=== PATIENT | male | born 1955 | race Caucasian/White ===

== ENCOUNTER 2016-08-03 13:13 | Inpatient (IN) | payer MEDICARE, OTHER ==
[~2016-08-03] VITALS: Ht 175.3 cm; Wt 54.5 kg
[2016-08-03] VITALS (19 sets, daily range): BP systolic 89–106; BP diastolic 53–71; PULSE 68–77; RESP 14–21; TEMP 85.7–98.3; O2SAT 94–100
[~2016-08-03 13:13] MED LIST: ALPR2TAB3 PO; DOCU50SY2 PO; MSIR15 PO; OXYB5TAB PO; OXYC1SOL5 PO; PRED-1 PO; PROB1TAB PO; PROT40TA PO; REST30CA PO; SENN-29 PO; VENTAER INH
[2016-08-03] MEDS ORDERED: SODIUM CHLOR 0.9% 1000 ML INJ 1,000 ML IV SCH (13:18)
[2016-08-03 13:20] LABS: MEAN CORPUSCULAR HGB CONC 29.7 % (32.0-36.0)
[2016-08-03] MEDS ORDERED: SODIUM CHLORIDE 0.9% FLUSH 10 ML FLUSH IVF PRN (13:30)
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
[2016-08-03 13:44] LABS: HEMATOCRIT 21.7 % (39.0-51.0); MEAN CELL VOLUME 77.8 FL (80.0-100.0); MEAN CORPUSCULAR HEMOGLOBIN 23.1 PG (27.0-34.0); PLATELET COUNT 157 TH/MM3 (150-450); RED BLOOD COUNT 2.79 MIL/MM3 (4.50-5.90); RED CELL DISTRIBUTION WIDTH 20.1 % (11.6-17.2); WHITE BLOOD COUNT 41.9 TH/MM3 (4.0-11.0)
[2016-08-03 13:53] LABS: HEMO FLAGS AUTO DIFF
[2016-08-03 13:54] LABS: APTT (PATIENT) 35.8 SEC (24.3-30.1); INTERNATIONAL NORMALIZED RATIO 2.4 RATIO; PROTHROMBIN TIME - PATIENT 28.1 SEC (9.8-11.6)
--- NOTE | 2016-08-03 14:09 | RADRPT ---
EXAM DATE/TIME: 08/03/2016 13:46 [facility] COMPARISON: No previous studies available for comparison. INDICATIONS : Syncope, fall, evaluate for fracture MEDICAL HISTORY : non-hodgkins lymphoma SURGICAL HISTORY : cervical fusion ENCOUNTER: Initial ACUITY: 1 day PAIN SCORE: Non-responsive. LOCATION: Bilateral pelvis FINDINGS: A single frontal view of the pelvis demonstrates no evidence of fracture. The bony pelvic ring is in tact. Bony mineralization is normal. The soft tissues are intact. CONCLUSION: No evidence of acute fracture. Cliff Mariscal MD on August 03, 2016 at 14:06 Board Certified Radiologist. This report was verified electronically.
--- NOTE | 2016-08-03 14:10 | RADRPT ---
EXAM DATE/TIME: 08/03/2016 13:41 [facility] COMPARISON: CHEST SINGLE AP, June 20, 2015, 11:44. INDICATIONS : Syncope, short of breath MEDICAL HISTORY : Non-hodgkins lymphoma SURGICAL HISTORY : cervical fusion ENCOUNTER: Initial ACUITY: 1 day PAIN SCORE: Non-responsive. LOCATION: Bilateral chest FINDINGS: A single view of the chest demonstrates the lungs to be symmetrically aerated without evidence of mas s, infiltrate or effusion. The cardiomediastinal contours are unremarkable. Old left-sided rib fract ures. CONCLUSION: No acute disease. Fernando Childress MD on August 03, 2016 at 14:06 Board Certified Radiologist. This report was verified electronically.
[2016-08-03] MEDS ORDERED: diphenhydrAMINE HCL 50 MG/ML VIAL IV PRN (14:15)
[2016-08-03] MEDS ORDERED: CEFEPIME INJ 2,000 MG in SODIUM CHLORIDE 0.9% INJ 100 ML IV ONE (14:15)
[2016-08-03] MEDS ORDERED: SODIUM CHLOR 0.9% 250 ML INJ 250 ML IV ONE (14:15)
[2016-08-03] MEDS ORDERED: AZITHROMYCIN INJ 500 MG in SODIUM CHLOR 0.9% 250 ML INJ 250 ML IV ONE (14:15)
[2016-08-03] MEDS ORDERED: SODIUM CHLOR 0.9% 1000 ML INJ 1,000 ML IV ONE ×2 (14:15→16:00)
[2016-08-03] MEDS ORDERED: ACETAMINOPHEN 325 MG TAB PO PRN (14:15)
[2016-08-03 14:21] LABS: ALKALINE PHOSPHATASE 337 U/L (45-117); ALT (GPT) 267 U/L (12-78); ANION GAP 6 MEQ/L (5-15); AST (GOT) 789 U/L (15-37); BICARBONATE 33.2 MEQ/L (21.0-32.0); BLOOD UREA NITROGEN 52 MG/DL (7-18); CALCIUM-PROTEIN CORRECTED 8.2 MG/DL (8.5-10.1); CHLORIDE 102 MEQ/L (98-107); CREATINE KINASE 741 U/L (39-308); GLOMERULAR FILTRATION RATE 197 ML/MIN (>89); POTASSIUM 4.3 MEQ/L (3.5-5.1); SODIUM (NA) 141 MEQ/L (136-145); TOTAL BILIRUBIN ADULT 1.4 MG/DL (0.2-1.0)
[2016-08-03 14:24] LABS: NEUTROPHIL # MANUAL DIFF 5.4 TH/MM3 (1.8-7.7); PLATELET ESTIMATE SMEAR NORMAL (NORMAL); PLATELET MORPHOLOGY NORMAL (NORMAL); POLYS (SEG NEUTROPHILS) 13 % (16-70); SCAN/DIFF FINAL DIFF MANUAL; WBC DIFF SAMPLE 100
[2016-08-03 14:28] LABS: BLOOD, URINE SMALL (NEG); GLUCOSE,URINE 70 mg/dL (NEG); KETONE, URINE NEG (NEG); MUCUS URINE FEW /lpf (OCC); PH, URINE 6.5 (5.0-8.5); SQUAMOUS EPITHELIAL CELL URINE 1 /hpf (0-5); URINE COLOR YELLOW (YELLW/STRAW)
[2016-08-03 14:28] LABS: SMUDGE CELLS PRESENT PRESENT
[2016-08-03 14:29] LABS: COMMENT (UR) CATH-CULT NOT IND; CULTURE IF INDICATED CATH CULTURE NOT IND; NITRITE,URINE POS (NEG)
[2016-08-03] MEDS ORDERED: ALBU6.7H INH (14:40)
[2016-08-03] MEDS ORDERED: DILA8TAB4 PO (14:40)
[2016-08-03] MEDS ORDERED: LIDO2SOL (14:40)
[2016-08-03] MEDS ORDERED: PANT20TA2 PO (14:40)
[2016-08-03] MEDS ORDERED: PRED20 PO (14:40)
[2016-08-03] MEDS ORDERED: OXYB5TAB10 PO (14:40)
[2016-08-03] MEDS ORDERED: [UNRECOGNIZED DRUG - SUPPLY] (14:40)
[2016-08-03] MEDS ORDERED: AMIT1TAB79 (14:40)
[2016-08-03] MEDS ORDERED: REST30CA PO (14:40)
[2016-08-03] MEDS ORDERED: ZOFR4TAB PO (14:40)
[2016-08-03] MEDS ORDERED: IOHEXOL 350 MG/ML 10 ML VIAL (for RAD DIAG) IV ONE (14:41)
[2016-08-03 14:45] LABS: CKMB 44.9 NG/ML (0.5-3.6)
--- NOTE | 2016-08-03 14:47 | RADRPT ---
EXAM DATE/TIME: 08/03/2016 14:40 [facility] COMPARISON: CT BRAIN W/O CONTRAST, June 15, 2015, 21:59. INDICATIONS : Altered mental status. RADIATION DOSE: 54.09 CTDIvol (mGy) MEDICAL HISTORY : Gastroesophageal reflux disease. Lymphoma. SURGICAL HISTORY : Appendectomy. ENCOUNTER: Initial ACUITY: 1 day PAIN SCALE: Non-responsive LOCATION: Bilateral head TECHNIQUE: Multiple contiguous axial images were obtained of the head. Using automated exposure control and adj ustment of the mA and/or kV according to patient size, radiation dose was kept as low as reasonably a chievable to obtain optimal diagnostic quality images. FINDINGS: CEREBRUM: The ventricles are normal for age. No evidence of midline shift, mass lesion, hemorrhage or acute in farction. No extra-axial fluid collections are seen. POSTERIOR FOSSA: The cerebellum and brainstem are intact. The 4th ventricle is midline. The cerebellopontine angle i s unremarkable. EXTRACRANIAL: The visualized portion of the orbits is intact. SKULL: The calvaria is intact. No evidence of skull fracture. CONCLUSION: Motion otherwise negative.. Darwin Briceño MD FACR on August 03, 2016 at 14:45 Board Certified Radiologist. This report was verified electronically.
--- NOTE | 2016-08-03 15:12 | RADRPT ---
EXAM DATE/TIME: 08/03/2016 14:46 [facility] COMPARISON: No previous studies available for comparison. INDICATIONS : Fever, failure to thrive. IV CONTRAST: 70 cc Omnipaque 350 (iohexol) IV ORAL CONTRAST: No oral contrast ingested. RADIATION DOSE: 4.48 CTDIvol (mGy) MEDICAL HISTORY : Gastroesophageal reflux disease. Lymphoma. SURGICAL HISTORY : Appendectomy. Lumbar discectomy ENCOUNTER: Initial ACUITY: 1 day PAIN SCALE: Non-responsive LOCATION: [place] abdomen TECHNIQUE: Volumetric scanning of the abdomen and pelvis was performed. Using automated exposure control and ad justment of the mA and/or kV according to patient size, radiation dose was kept as low as reasonably achievable to obtain optimal diagnostic quality images. FINDINGS: Patchy airspace disease is seen in lung bases worse on the right. There is trace ascites evident. Spleen is prominent. Pancreas appears unremarkable. Adrenal glands appear normal. Kidneys are smal l and shrunken. Moderate vascular calcifications are noted. Moderate stool is seen throughout the colon. Bladder is distended in spite of Sy. Review of bone windows reveals degenerative changes in the lumbar spine without obvious bony destruct ion. CONCLUSION: 1. Generalized emaciation with patchy airspace disease in both lungs worse on the right. 2. Moderate ascites with a prominent spleen suggesting hepatic disease. 3. Moderate vascular calcifications. 4. Distended bladder in spite of Sy. Darwin Briceño MD FACR on August 03, 2016 at 14:59 Board Certified Radiologist. This report was verified electronically.
[2016-08-03] MEDS ORDERED: MISCELLANEOUS NURSING INFORMATION XX SCH (15:30)
[2016-08-03] MEDS ORDERED: CHLORHEXIDINE GLUCONATE 2 % 1 PACK (2 CLOTHS) TOP PRN (15:30)
[2016-08-03] MEDS ORDERED: GLUCAGON 1 MG/ML VIAL OTHER PRN (15:30)
[2016-08-03] MEDS ORDERED: DEXTROSE 50% IN WATER 50 ML VIAL(D50) IV PUSH PRN (15:30)
[2016-08-03] MEDS ORDERED: Vancomycin Consult Pharmacy 1 EA OTHER SCH (15:45)
[2016-08-03] MEDS: methylPREDNISolone SOD SUCC 125 MG/2 ML VIAL IV PUSH SCH (16:00)
[2016-08-03] MEDS ORDERED: INSULIN NovoLIN REGULAR SUPPLEMENTAL SCALE SQ SCH (16:00)
[2016-08-03] MEDS: DEXT 5%-NACL 0.9% 1000 ML INJ 1,000 ML IV SCH (16:00)
[2016-08-03] MEDS: INSULIN NovoLIN REGULAR SUPPLEMENTAL SCALE SQ SCH ×2 (16:00→22:00)
[2016-08-03 16:35] LABS: AMPHETAMINE, URINE NEG (NEG); BARBITURATES, URINE NEG (NEG); COCAINE, URINE NEG (NEG)
[2016-08-03] MEDS ORDERED: AZITHROMYCIN INJ 500 MG in SODIUM CHLOR 0.9% 250 ML INJ 250 ML IV SCH (17:00)
[2016-08-03] MEDS: SENNOSIDES SYRUP 8.8 MG/5 ML CUP PO SCH (17:00)
[2016-08-03] MEDS ORDERED: CALCIUM GLUCONATE INJ 1 GM in SODIUM CHLORIDE 0.9% INJ 100 ML IV ONE (17:00)
--- NOTE | 2016-08-03 17:26 | RADRPT ---
EXAM DATE/TIME: 08/03/2016 16:13 [facility] COMPARISON: No previous studies available for comparison. EXTERNAL COMPARISON : [facility], CT ABDOMEN & PELVIS W CONTRAST, April 01, 2012 INDICATIONS : Increased lab values. MEDICAL HISTORY : Hernia, hiatal. Gastroesophageal reflux disease. Chronic obstructive pulmonary disease. Nonhodgkins l ymphoma. Stomach ulcer. Chronic back pain. Substance use. Depression. Anxiety. SURGICAL HISTORY : Tonsillectomy. Appendectomy. Adenoidectomy. Cervical fusion x3. Lumbar discectomies, mutliple. Chem otherapy. ENCOUNTER: Initial ACUITY: 1 day PAIN SCORE: 2/10 LOCATION: Bilateral upper quadrant MEASUREMENTS: LIVER: 12.6 cm length COMMON DUCT: 2 mm RIGHT KIDNEY: 9.6 x 5.8 x 4.5 cm SPLEEN: 10.8 cm length FINDINGS: LIVER: A coarse hyperechoic texture is evident throughout the liver. Portal vein is patent. There are no foc al lesions or evidence of biliary duct dilatation. Free fluid is seen along the liver edge. COMMON DUCT: No intraluminal mass or stone visualized. GALLBLADDER: Gallbladder wall is thickened. There is mild pericholecystic fluid and minimal sludge. No large galls tones are seen. PANCREAS: The visualized portions are within normal limits. RIGHT KIDNEY: Increased renal cortical echogenicity and mildly prominent renal pelvis. SPLEEN: No focal lesion. CONCLUSION: Hyperechoic liver with minimal ascites. Thickened gallbladder wall with pericholecystic fluid and minimal sludge. Increase cortical echogenicity of the right kidney without evidence of hydronephrosis. Cliff Mariscal MD on August 03, 2016 at 17:19 Board Certified Radiologist. This report was verified electronically.
[2016-08-03] MEDS ORDERED: VANCOMYCIN INJ 700 MG in SODIUM CHLOR 0.9% 250 ML INJ 250 ML IV ONE (17:30)
[2016-08-03] MEDS: RESP: ALBUTEROL 2.5 MG/IPRATROPIUM 0.5 MG NEB (SCH) INH ×3 (17:44→23:15)
[2016-08-03 17:47] LABS: CREATINE KINASE 685 U/L (39-308)
--- NOTE | 2016-08-03 17:57 | PD.CONS ---
HPI History of Present Illness This is a 61 year old [gentleman] w/ hx non hodgkins lymphoma who per EMR was found on the floor with blood glucose 29, bradycardic. He was also hypothermic with temp 85 per RN, currently 94. He is a hospice pt and had not been seen for a few days, did not answer phone or door. He does not know why he is here. He is asking for a cigarette. He denies abdominal pain, nausea, or vomiting, diarrhea, BRBPR, bleeding. He said he had lymphoma and is done with chemo but cannot contribute further. He says he has never had colonoscopy or endoscopy. He says he has chronic back pain and is asking for pain meds. (Thao Milton) PFSH Past Medical History non hodgkins lymphoma Past Surgical History unk (Thao Milton) Coded Allergies: Effexor (Verified Adverse Reaction, Intermediate, AGITATED, 04/11/15) Nonsteroidal Anti-Inflammatory Agts (Verified Adverse Reaction, Intermediate, NAUSEA, 04/11/15) Medications Current Medications Medications (Trade) Dose Ordered Sig/Angelina Route PRN Reason Start Time Stop Time Status Last Admin Dose Admin Sodium Chloride 2 ml 2 ml UNSCH PRN IVF FLUSH AFTER USING IV ACCESS 08/03/16 13:30 Sodium Chloride (NS 250 ml Inj) 250 ml @ 15 mls/hr ONCE ONCE IV 08/03/16 14:15 08/04/16 06:54 Pantoprazole Sodium (Protonix Inj) 40 mg DAILY IV 08/04/16 09:00 Miscellaneous Information 1 [id number] XX 08/03/16 15:30 Chlorhexidine Gluconate (Chlorhexidine 2% Cloth) 3 pack Taper DAILY@04 TOP 08/04/16 04:00 07/31/17 03:59 Chlorhexidine Gluconate 3 pack 3 pack UNSCH PRN [facility] 08/03/16 15:30 Dextrose/Sodium Chloride (D5W-NS 1000 ml Inj) 1,000 ml @ 100 mls/hr Q10H IV 08/03/16 16:00 08/03/16 16:00 Methylprednisolone Sodium Succinate (SoluMEDROL INJ) 60 mg Q8H IV PUSH 08/03/16 16:00 08/03/16 16:00 Dextrose (D50w (Vial) Inj) 25 ml UNSCH PRN IV PUSH HYPOGLYCEMIA-SEE COMMENTS 08/03/16 15:30 08/03/16 16:12 Glucagon 1 mg 1 mg UNSCH PRN OTHER HYPOGLYCEMIA-SEE COMMENTS 08/03/16 15:30 Calcium Gluconate 1 gm/Sodium Chloride 110 ml @ 110 mls/hr ONCE ONCE IV 08/03/16 17:00 08/03/16 17:59 08/03/16 17:29 Piperacillin Sod/ Tazobactam Sod 100 ml @ 200 mls/hr Q6H IV 08/03/16 16:00 Pharmacy Profile Note (Vancomycin Consult Pharmacy) 0 ml @ 0 mls/hr UNSCH OTHER 08/03/16 15:45 Docusate Sodium (Colace Liq) 100 mg Q12HR PO 08/03/16 21:00 Sennosides (Senna Liq) 8.8 mg DAILY PO 08/03/16 17:00 Insulin Human Regular 1 1 Q2H SQ 08/03/16 16:00 Azithromycin 500 mg/Sodium Chloride 250 ml @ 250 mls/hr Q24H IV 08/04/16 15:00 Vancomycin HCl/ Sodium Chloride (Vancomycin Inj/ NS 250 ml Inj) 257 ml @ 250 mls/hr ONCE ONCE IV 08/03/16 17:30 08/03/16 18:31 Family History unk Social History no ETOH smokes 1.5 ppd (Thao Milton) Review of Systems Constitutional: COMPLAINS OF: Weight loss Respiratory: DENIES: Hemoptysis Cardiovascular: DENIES: Chest pain Gastrointestinal: DENIES: Abdominal pain, Black stools, Bloody stools, Diarrhea , Nausea, Vomiting, Hematemesis Musculoskeletal: COMPLAINS OF: Back pain (says he broke back in 5 places) ( Thao Milton) GI Exam Vitals I&O Vital Signs Date Time Temp Pulse Resp B/P Pulse Ox O2 Delivery O2 Flow Rate FiO2 08/03/16 17:16 93.7 69 15 92/54 95 Room Air 08/03/16 14:54 88.7 08/03/16 14:10 86.5 76 21 106/71 100 Nasal Cannula 2 08/03/16 14:04 100 08/03/16 13:22 85.7 08/03/16 13:16 85.7 21 Imaging Last Impressions Head CT 08/03/161317 Signed Impressions: Service Date/Time: Wednesday, August 03, 2016 14:40 - CONCLUSION: Motion otherwise negative.. Darwin Briceño MD FACR Chest X-Ray 08/03/168 Signed Impressions: Service Date/Time: Wednesday, August 03, 2016 13:41 - CONCLUSION: No acute disease. Fernando Childress MD Pelvis X-Ray 08/03/16 0000 Signed Impressions: Service Date/Time: Wednesday, August 03, 2016 13:46 - CONCLUSION: No evidence of acute fracture. Cliff Mariscal MD Liver Ultrasound 08/03/16 0000 Signed Impressions: Service Date/Time: Wednesday, August 03, 2016 16:13 - CONCLUSION: Hyperechoic liver with minimal ascites. Thickened gallbladder wall with pericholecystic fluid and minimal sludge. Increase cortical echogenicity of the right kidney without evidence of hydronephrosis. Cliff Mariscal MD Abdomen/Pelvis CT 08/03/16 0000 Signed Impressions: Service Date/Time: Wednesday, August 03, 2016 14:46 - CONCLUSION: 1. Generalized emaciation with patchy airspace disease in both lungs worse on the right. 2. Moderate ascites with a prominent spleen suggesting hepatic disease. 3. Moderate vascular calcifications. 4. Distended bladder in spite of Sy. Darwin Briceño MD FACR Laboratory Test 08/03/16 08/03/16 08/03/16 08/03/16 12:20 13:20 14:00 14:10 White Blood Count 41.9 TH/MM3 Red Blood Count 2.79 MIL/MM3 Hemoglobin 6.5 GM/DL Hematocrit 21.7 % Mean Corpuscular Volume 77.8 FL Mean Corpuscular Hemoglobin 23.1 PG Mean Corpuscular Hemoglobin 29.7 % Concent Red Cell Distribution Width 20.1 % Platelet Count 157 TH/MM3 Mean Platelet Volume 7.8 FL Neutrophils (%) (Auto) % Lymphocytes (%) (Auto) % Monocytes (%) (Auto) % Eosinophils (%) (Auto) % Basophils (%) (Auto) % Neutrophils # (Auto) TH/MM3 Lymphocytes # (Auto) TH/MM3 Monocytes # (Auto) TH/MM3 Eosinophils # (Auto) TH/MM3 Basophils # (Auto) TH/MM3 CBC Comment AUTO DIFF Differential Total Cells 100 Counted Neutrophils % (Manual) 13 % Lymphocytes % 84 % Monocytes % 3 % Neutrophils # (Manual) 5.4 TH/MM3 Differential Comment FINAL DIFF MANUAL Smudge Cells PRESENT Platelet Estimate NORMAL Platelet Morphology Comment NORMAL Prothrombin Time 28.1 SEC Prothromb Time International 2.4 RATIO Ratio Activated Partial 35.8 SEC Thromboplast Time Fibrinogen 333 mg/dL Sodium Level 141 MEQ/L Potassium Level 4.3 MEQ/L Chloride Level 102 MEQ/L Carbon Dioxide Level 33.2 MEQ/L Anion Gap 6 MEQ/L Blood Urea Nitrogen 52 MG/DL Creatinine 0.44 MG/DL Estimat Glomerular Filtration 197 ML/MIN Rate Random Glucose 170 MG/DL Calcium Level 6.8 MG/DL Protein Corrected Calcium 8.2 MG/DL Total Bilirubin 1.4 MG/DL Aspartate Amino Transf 789 U/L (AST/SGOT) Alanine Aminotransferase 267 U/L (ALT/SGPT) Alkaline Phosphatase 337 U/L Total Creatine Kinase 741 U/L Creatine Kinase MB 44.9 NG/ML Creatine Kinase MB % 6.1 % Troponin I LESS THAN 0.02 NG/ML Total Protein 4.5 GM/DL Albumin 2.1 GM/DL Thyroid Stimulating Hormone 2.920 uIU/ML 3rd Gen Ethyl Alcohol Level LESS THAN 3 MG/DL Lactic Acid Level 0.9 mmol/L Blood Type O POSITIVE Antibody Screen NEGATIVE Crossmatch Leukocyte-Reduced Red Blood Cells Blood Bank Comment Urine Color YELLOW Urine Turbidity CLEAR Urine pH 6.5 Urine Specific Ware 1.018 Urine Protein NEG mg/dL Urine Glucose (UA) 70 mg/dL Urine Ketones NEG mg/dL Urine Occult Blood SMALL Urine Nitrite POS Urine Bilirubin NEG Urine Urobilinogen LESS THAN 2.0 MG/DL Urine Leukocyte Esterase MOD Urine RBC 17 /hpf Urine WBC 5 /hpf Urine Squamous Epithelial 1 /hpf Cells Urine Mucus FEW /lpf Microscopic Urinalysis Comment CATH-CULT NOT IND Urine Opiates Screen POS Urine Barbiturates Screen NEG Urine Amphetamines Screen NEG Urine Benzodiazepines Screen POS Urine Cocaine Screen NEG Urine Cannabinoids Screen NEG Test 08/03/16 08/03/16 15:28 17:04 Blood Bank Comment Blood Type O POSITIVE Date/Time Procedure Status Source Growth 08/03/16 14:10 Legionella Antigen Received Urine Catheterized Urine Pending 08/03/16 14:10 Streptococcus pneumoniae Antigen (M Received Urine Catheterized Urine Pending 08/03/16 12:40 Aerobic Blood Culture Received Blood Peripheral Pending 08/03/16 12:40 Anaerobic Blood Culture Received Blood Peripheral Pending Physical Examination GENERAL: emaciated HEENT: EOMI; normocephalic; atraumatic; no jaundice. CHEST: diminished CARDIAC: Regular rate and rhythm with no murmur gallop or rubs. ABDOMEN: emaciated;bowel sounds are present in all four quadrants. EXTREMITIES: No clubbing, cyanosis, or edema. SKIN: multiple scabs. ATHLETIC TRAINER: A/O but lethargic. (Thao Milton) Assessment and Plan Plan ASSESSMENT - elevated LFTs - AST 789, ALT 267, ALP 337, TBIL 1.4. hep panel pending. pt denies ETOH. US 08-03-16---> Hyperechoic liver with minimal ascites. Thickened gallbladder wall with pericholecystic fluid and minimal sludge. Increase cortical echogenicity of the right kidney without evidence of hydronephrosis. Abdomen/Pelvis CT 08/03/16---> 1. Generalized emaciation with patchy airspace disease in both lungs worse on the right. 2. Moderate ascites with a prominent spleen suggesting hepatic disease. 3. Moderate vascular calcifications. 4. Distended bladder in spite of Sy. Hep panel pending. HIDA scan. - anemia - HH 6.5, 21.7. Hx lymphoma. guiac neg. pt denies tarry stools, hematochezia, hematemesis. blood transfusion pending PLAN: - monitor HH - monitor LFTs - transfuse as needed - HIDA in am - supportive care - further recommendations after results of above This pt seen by myself and Dr Schroeder and this note is written on her behalf ( Thao Milton) Physician Comments seen, examined agree with above nutritional consult resume diet supportive care (Nicole Schroeder MD) Thao Milton August 03, 2016 17:57 Nicole Schroeder MD August 03, 2016 19:39
[2016-08-03 18:00] LABS: CKMB 41.4 NG/ML (0.5-3.6)
[2016-08-03] MEDS: PIPERACIL-TAZO 4.5 GM PREMIX 100 ML IV SCH ×2 (18:17→22:41)
--- NOTE | 2016-08-03 20:16 | MH ---
cc: KELI LEARY M.D. DATE OF ADMISSION 08/03/2016 DATE OF 1955 HISTORY OF THE PRESENT ILLNESS The patient is a 61-year-old male with past medical history of non-Hodgkin's lymphoma, gastroesophageal reflux disease, chronic back pain, COPD who presented to [facility] ED after being found down on the floor, confused and hypoglycemic with initial blood sugar of 29 according to EMS. He was given D50 and his mental status subsequently improved to a GCS score of 14. In addition the patient was found hypothermic and bradycardic with heart rate in 30s to 50s. He was administered atropine 0.5 mg IV with improvements in his heart rate up to into the 60s and 70s. On arrival to the ER he was slightly confused, however, he was able to answer questions and follows simple commands. The patient denies any headache, neck pain and chest pain. In addition he denies any nausea or vomiting or abdominal pain. The history is somewhat limited as the patient is a poor historian and most of the history was obtained from reviewing the medical records. His laboratory data significant for leukocytosis with WBC of 41.9, lymphocyte predominant. Anemia with hemoglobin of 6.5 with hematocrit 21.7, and coagulopathy with INR of 2.4. In addition he was found to have elevated liver enzymes with a total bilirubin 1.4, AST 789, ALT 267, alk phos 337. Due to altered mental status CT scan of the brain was obtained which showed no acute intracranial findings. Chest x-ray on admission showed no acute disease. His lactic acid level measured at 0.9 and the patient underwent a CT abdomen and pelvis which showed patchy airspace disease, bibasilar, worse on the right. A prominent spleen suggesting hepatic disease, distended bladder and moderate vascular calcification. In the ER he was given 2 liters of crystalloids and 2 units of PRBC has been ordered by the ER. When seen the patient's current blood pressure is 90/51 with a MAP of 68. Saturation of 100% on 2 liters oxygen. He had a temperature of 88.7 core and is currently on warming blanket. PAST MEDICAL HISTORY Significant for: 1. Non-Hodgkin's lymphoma. 2. Gastroesophageal reflux disease. 3. Chronic back pain. 4. COPD. 5. Previous gastric ulcer. PAST SURGICAL HISTORY 1. Previous appendectomy. 2. Previous cervical fusion. 3. Lumbar disectomies. 4. Previous tonsillectomy and adenoidectomy. SOCIAL HISTORY Nondrinker. Active smoker. ALLERGIES EFFEXOR AND NSAIDS. FAMILY HISTORY Noncontributory. MEDICATIONS Reported medications include: 1. Prednisone. 2. Protonix. 3. Dilaudid. 4. Proventil. 5. . 6. Ditropan. 7. Elavil. REVIEW OF SYSTEMS As per HPI. The rest of the review of systems limited as patient is a poor historian. PHYSICAL EXAMINATION GENERAL: A 61-year-old male lying in bed in no acute respiratory distress. VITAL SIGNS: Temperature 88.7 core, pulse of 76, respiratory 21, blood pressure 90/51 with a MAP of 68, saturation 100% on nasal cannula. HEENT: Atraumatic, normocephalic. Pupils equal, round, reactive to light and accommodation. Extraocular muscles intact. Conjunctivae pink. Dry mucous membranes. NECK: Supple. No JVD, adenopathy or thyromegaly. Trachea midline. CARDIOVASCULAR: Regular rate and rhythm. Normal S1-S2. No murmurs, rubs or gallops noted. LUNGS: Pulmonary exam bilateral equal entry. No crackles or wheezing. ABDOMEN: Soft, nontender. No distension. Positive bowel sounds. EXTREMITIES: No cyanosis, clubbing or edema. NEUROLOGIC: No focal sensory deficit. LABORATORY DATA WBC 41.9, hemoglobin 6.5, hematocrit 21, platelet count of 157. Sodium 141, potassium 4.3, chloride 102, CO2 33, BUN 52, creatinine 0.44, glucose 170, lactic acid 0.9. Corrected calcium 8.2. Total bilirubin 1.4, AST 789, ALT 267, alk phos 337. Total CK 741, CKMB percentage 6.1 with troponin less than 0.02. Albumin 2.1. TSH 2.92. Urinalysis positive for leukocyte esterase, nitrite, 5 wbc's. IMAGING Radiographic studies, CT scan of the brain showed no acute intracranial abnormality. CT abdomen, pelvis showed patchy airspace disease in both lung bases, worse on the right. Distended bladder. IMPRESSION 1. Respiratory insufficiency. 2. Status post hypoglycemic episode. 3. Leukocytosis. 4. Urinary tract infection. 5. Anemia. 6. Coagulopathy. 7. Elevated liver enzymes. 8. COPD. 9. History of non-Hodgkin's lymphoma. 10. Gastroesophageal reflux disease RECOMMENDATIONS 1. Monitor neuro status closely and avoid any sedatives. CT scan of the brain in the ER negative for acute disease. Will check ammonia level, alcohol level and urine drug screen. 2. Continue with oxygen to maintain sats above 92%. 3. Bronchodilators in the form of DuoNeb q.4h. Plus q.2h as needed for shortness of breath. 4. Solu-Medrol 60 mg IV q.8h. 5. Monitor heart rate and blood pressure closely and maintain MAP greater than 65 mmHg. A lactic acid level measured at 0.9. 6. Monitor cardiac enzymes with troponins. He was given 2 liters of crystalloid in the ED. Will give an additional one liter bolus of normal saline followed by maintenance fluids D5 NS at 100 ml an hour. 7. Monitor renal function Is and Os and electrolyte replacement per protocol. 8. Keep n.p.o. for now and we will place on Protonix 40 mg IV daily. 9. The patient is for transfusion 2 units of PRBCs. In addition will transfuse 2 units of fresh frozen plasma for coagulopathy. Check H&H and PT/INR post transfusion. Will consult GI service for possible need of endoscopy. 10. Monitor LFTs and will check hepatitis profile. 11. Monitor CBC and coags rule out DIC. Check fibrinogen level. 12. Continue with broad-spectrum antibiotics. Will continue place on vancomycin, Zosyn and azithromycin. Monitor for signs of infections which include fever and WBC. Of note the patient received cefepime and azithromycin in the ER. Follow up on blood cultures. In addition will check a sputum culture with gram stain, strep pneumonia and Legionella urinary antigen. 13. Place on sliding scale insulin with Accu-Cheks q. 2-hour. The patient status post hypoglycemic episode. Will place on D5 NS at 100 ml an hour. TSH level measured at 2.92. 14. Keep n.p.o. for now until mental status improves and continue with IV fluids as stated above. 15. GI prophylaxis with Protonix 40 mg daily and DVT prophylaxis with SCDs. The patient is anticoagulated on arrival with INR 2.4. No need for any further anticoagulation. Critical care time 35 minutes excluding procedures. MD FLORENCIA Lopez /3:59 PM /7:16 PM
[2016-08-03] MEDS: DOCUSATE SODIUM 100 MG/10 ML UDC PO SCH (21:00)
[2016-08-03] MEDS: HYDROmorphone HCL PF 1 MG/ML VIAL IV PRN (22:37)
[2016-08-04] VITALS (14 sets, daily range): BP systolic 101–143; BP diastolic 58–65; PULSE 62–85; RESP 10–18; TEMP 97.5–98.6; O2SAT 95–100
[2016-08-04] MEDS: methylPREDNISolone SOD SUCC 125 MG/2 ML VIAL IV PUSH SCH ×4 (00:38→21:20)
[2016-08-04] MEDS: DEXT 5%-NACL 0.9% 1000 ML INJ 1,000 ML IV SCH ×3 (00:39→21:20)
[2016-08-04 01:15] LABS: CREATINE KINASE 845 U/L (39-308)
[2016-08-04 01:27] LABS: CKMB 37.1 NG/ML (0.5-3.6)
[2016-08-04] MEDS: ALPRAZolam 1 MG TAB PO PRN ×4 (01:55→23:57)
[2016-08-04] MEDS: HYDROmorphone HCL 4 MG TAB PO PRN ×4 (01:56→23:57)
[2016-08-04] MEDS: INSULIN NovoLIN REGULAR SUPPLEMENTAL SCALE SQ SCH ×6 (02:00→20:00)
[2016-08-04] MEDS: PIPERACIL-TAZO 4.5 GM PREMIX 100 ML IV SCH ×4 (02:03→21:20)
[2016-08-04] MEDS: CHLORHEXIDINE GLUCONATE 2 % 1 PACK (2 CLOTHS) TOP SCH (04:00)
[2016-08-04 04:02] LABS: INTERNATIONAL NORMALIZED RATIO 1.5 RATIO
[2016-08-04] MEDS: RESP: ALBUTEROL 2.5 MG/IPRATROPIUM 0.5 MG NEB (SCH) INH ×5 (04:04→23:54)
[2016-08-04 04:21] LABS: BICARBONATE 28.1 MEQ/L (21.0-32.0); POTASSIUM 4.3 MEQ/L (3.5-5.1)
[2016-08-04 04:33] LABS: CALCIUM-PROTEIN CORRECTED 7.3 MG/DL (8.5-10.1)
[2016-08-04 04:39] LABS: HEMATOCRIT 30.4 % (39.0-51.0); MEAN CELL VOLUME 81.6 FL (80.0-100.0); MEAN CORPUSCULAR HEMOGLOBIN 25.1 PG (27.0-34.0); MEAN CORPUSCULAR HGB CONC 30.7 % (32.0-36.0); PLATELET COUNT 115 TH/MM3 (150-450); RED BLOOD COUNT 3.72 MIL/MM3 (4.50-5.90); WHITE BLOOD COUNT 26.4 TH/MM3 (4.0-11.0)
[2016-08-04 04:42] LABS: HEMO FLAGS AUTO DIFF
[2016-08-04] MEDS: HYDROmorphone HCL PF 1 MG/ML VIAL IV PRN (05:08)
[2016-08-04 06:55] LABS: NEUTROPHIL # MANUAL DIFF 6.9 TH/MM3 (1.8-7.7); POLYS (SEG NEUTROPHILS) 26 % (16-70); WBC DIFF SAMPLE 100
[2016-08-04 06:58] LABS: PLATELET ESTIMATE SMEAR LOW (NORMAL); PLATELET MORPHOLOGY NORMAL (NORMAL); SCAN/DIFF FINAL DIFF MANUAL
[2016-08-04] MEDS: DOCUSATE SODIUM 100 MG/10 ML UDC PO SCH ×2 (07:54→21:00)
[2016-08-04] MEDS: SENNOSIDES SYRUP 8.8 MG/5 ML CUP PO SCH (07:54)
[2016-08-04] MEDS: PANTOPRAZOLE SODIUM 40 MG VIAL IV SCH (07:55)
--- NOTE | 2016-08-04 08:17 | HHI.CCPN ---
Subjective Remarks/Hospital Course The patient is a 61-year-old male with past medical history of non-Hodgkin's lymphoma, gastroesophageal reflux disease, chronic back pain, COPD who presented to [facility] ED after being found down on the floor, confused and hypoglycemic with initial blood sugar of 29 according to EMS. He was given D50 and his mental status subsequently improved to a GCS score of 14. In addition the patient was found hypothermic and bradycardic with heart rate in 30s to 50s. He was administered atropine 0.5 mg IV with improvements in his heart rate up to into the 60s and 70s. On arrival to the ER he was slightly confused, however, he was able to answer questions and follows simple commands. The patient denies any headache, neck pain and chest pain. In addition he denies any nausea or vomiting or abdominal pain. The history is somewhat limited as the patient is a poor historian and most of the history was obtained from reviewing the medical records. His laboratory data significant for leukocytosis with WBC of 41.9, lymphocyte predominant. Anemia with hemoglobin of 6.5 with hematocrit 21.7, and coagulopathy with INR of 2.4. In addition he was found to have elevated liver enzymes with a total bilirubin 1.4, AST 789, ALT 267, alk phos 337. Due to altered mental status CT scan of the brain was obtained which showed no acute intracranial findings. Chest x-ray on admission showed no acute disease. His lactic acid level measured at 0.9 and the patient underwent a CT abdomen and pelvis which showed patchy airspace disease, bibasilar, worse on the right. A prominent spleen suggesting hepatic disease, distended bladder and moderate vascular calcification. In the ER he was given 2 liters of crystalloids and 2 units of PRBC has been ordered by the ER. When seen the patient's current blood pressure is 90/51 with a MAP of 68. Saturation of 100% on 2 liters oxygen. He had a temperature of 88.7 core and is currently on warming blanket. 08/04 Patient is more awake and alert lying in bed in NAD. For HID scan today per GI. Objective Vital Signs Date Time Temp Pulse Resp B/P Pulse Ox O2 Delivery O2 Flow Rate FiO2 08/04/16 06:00 69 08/04/16 04:00 97.9 17 107/59 08/03/16 23:15 100 Nasal Cannula 2.00 Intake and Output 08/03/16 08/03/16 08/03/16 07:59 15:59 23:59 Intake Total 1531 ml Output Total 2100 ml Balance -569 ml Result Diagram: 08/04/16 0337 08/04/16 0337 Other Results Laboratory Tests Test 08/03/16 08/03/16 08/03/16 08/03/16 12:20 13:20 14:00 14:10 White Blood Count 41.9 TH/MM3 Red Blood Count 2.79 MIL/MM3 Hemoglobin 6.5 GM/DL Hematocrit 21.7 % Mean Corpuscular Volume 77.8 FL Mean Corpuscular Hemoglobin 23.1 PG Mean Corpuscular Hemoglobin 29.7 % Concent Red Cell Distribution Width 20.1 % Platelet Count 157 TH/MM3 Mean Platelet Volume 7.8 FL Neutrophils (%) (Auto) % Lymphocytes (%) (Auto) % Monocytes (%) (Auto) % Eosinophils (%) (Auto) % Basophils (%) (Auto) % Neutrophils # (Auto) TH/MM3 Lymphocytes # (Auto) TH/MM3 Monocytes # (Auto) TH/MM3 Eosinophils # (Auto) TH/MM3 Basophils # (Auto) TH/MM3 CBC Comment AUTO DIFF Differential Total Cells 100 Counted Neutrophils % (Manual) 13 % Lymphocytes % 84 % Monocytes % 3 % Neutrophils # (Manual) 5.4 TH/MM3 Differential Comment FINAL DIFF MANUAL Smudge Cells PRESENT Platelet Estimate NORMAL Platelet Morphology Comment NORMAL Prothrombin Time 28.1 SEC Prothromb Time International 2.4 RATIO Ratio Activated Partial 35.8 SEC Thromboplast Time Fibrinogen 333 mg/dL Sodium Level 141 MEQ/L Potassium Level 4.3 MEQ/L Chloride Level 102 MEQ/L Carbon Dioxide Level 33.2 MEQ/L Anion Gap 6 MEQ/L Blood Urea Nitrogen 52 MG/DL Creatinine 0.44 MG/DL Estimat Glomerular Filtration 197 ML/MIN Rate Random Glucose 170 MG/DL Calcium Level 6.8 MG/DL Protein Corrected Calcium 8.2 MG/DL Total Bilirubin 1.4 MG/DL Aspartate Amino Transf 789 U/L (AST/SGOT) Alanine Aminotransferase 267 U/L (ALT/SGPT) Alkaline Phosphatase 337 U/L Total Creatine Kinase 741 U/L Creatine Kinase MB 44.9 NG/ML Creatine Kinase MB % 6.1 % Troponin I LESS THAN 0.02 NG/ML Total Protein 4.5 GM/DL Albumin 2.1 GM/DL Thyroid Stimulating Hormone 2.920 uIU/ML 3rd Gen Ethyl Alcohol Level LESS THAN 3 MG/DL Lactic Acid Level 0.9 mmol/L Blood Type O POSITIVE Antibody Screen NEGATIVE Crossmatch Leukocyte-Reduced Red Blood Cells Blood Bank Comment Urine Color YELLOW Urine Turbidity CLEAR Urine pH 6.5 Urine Specific [place] 1.018 Urine Protein NEG mg/dL Urine Glucose (UA) 70 mg/dL Urine Ketones NEG mg/dL Urine Occult Blood SMALL Urine Nitrite POS Urine Bilirubin NEG Urine Urobilinogen LESS THAN 2.0 MG/DL Urine Leukocyte Esterase MOD Urine RBC 17 /hpf Urine WBC 5 /hpf Urine Squamous Epithelial 1 /hpf Cells Urine Mucus FEW /lpf Microscopic Urinalysis Comment CATH-CULT NOT IND Urine Opiates Screen POS Urine Barbiturates Screen NEG Urine Amphetamines Screen NEG Urine Benzodiazepines Screen POS Urine Cocaine Screen NEG Urine Cannabinoids Screen NEG Test 08/03/16 08/03/16 08/03/16 08/04/16 15:28 17:04 20:45 00:27 Blood Bank Comment Ammonia LESS THAN 10 MCMOL/L Total Creatine Kinase 685 U/L 845 U/L Creatine Kinase MB 41.4 NG/ML 37.1 NG/ML Creatine Kinase MB % 6.0 % 4.4 % Troponin I LESS THAN 0.02 LESS THAN 0.02 NG/ML NG/ML Blood Type O POSITIVE Nasal Screen MRSA (PCR) MRSA NOT DETECTED Test 08/04/16 03:37 White Blood Count 26.4 TH/MM3 Red Blood Count 3.72 MIL/MM3 Hemoglobin 9.3 GM/DL Hematocrit 30.4 % Mean Corpuscular Volume 81.6 FL Mean Corpuscular Hemoglobin 25.1 PG Mean Corpuscular Hemoglobin 30.7 % Concent Red Cell Distribution Width 19.0 % Platelet Count 115 TH/MM3 Mean Platelet Volume 8.1 FL Neutrophils (%) (Auto) % Lymphocytes (%) (Auto) % Monocytes (%) (Auto) % Eosinophils (%) (Auto) % Basophils (%) (Auto) % Neutrophils # (Auto) TH/MM3 Lymphocytes # (Auto) TH/MM3 Monocytes # (Auto) TH/MM3 Eosinophils # (Auto) TH/MM3 Basophils # (Auto) TH/MM3 CBC Comment AUTO DIFF Differential Total Cells 100 Counted Neutrophils % (Manual) 26 % Lymphocytes % 74 % Neutrophils # (Manual) 6.9 TH/MM3 Differential Comment FINAL DIFF MANUAL Atypical Lymphocytes % Platelet Estimate LOW Platelet Morphology Comment NORMAL Prothrombin Time 17.0 SEC Prothromb Time International 1.5 RATIO Ratio Sodium Level 143 MEQ/L Potassium Level 4.3 MEQ/L Chloride Level 106 MEQ/L Carbon Dioxide Level 28.1 MEQ/L Anion Gap 9 MEQ/L Blood Urea Nitrogen 41 MG/DL Creatinine 0.61 MG/DL Estimat Glomerular Filtration 135 ML/MIN Rate Random Glucose 134 MG/DL Calcium Level 6.4 MG/DL Protein Corrected Calcium 7.3 MG/DL Total Bilirubin 1.0 MG/DL Aspartate Amino Transf 505 U/L (AST/SGOT) Alanine Aminotransferase 245 U/L (ALT/SGPT) Alkaline Phosphatase 311 U/L Total Protein 5.2 GM/DL Albumin 2.4 GM/DL Imaging Last Impressions Head CT 08/03/[id number] Signed Impressions: Service Date/Time: Wednesday, August 03, 2016 14:40 - CONCLUSION: Motion otherwise negative.. Darwin Briceño MD FACR Chest X-Ray [id number]/03/[id number] Signed Impressions: Service Date/Time: Wednesday, August 03, 2016 13:41 - CONCLUSION: No acute disease. Fernando Childress MD Pelvis X-Ray 08/03/16 Signed Impressions: Service Date/Time: Wednesday, August 03, 2016 13:46 - CONCLUSION: No evidence of acute fracture. Cliff Mariscal MD Liver Ultrasound 08/03/16 0000 Signed Impressions: Service Date/Time: Wednesday, August 03, 2016 16:13 - CONCLUSION: Hyperechoic liver with minimal ascites. Thickened gallbladder wall with pericholecystic fluid and minimal sludge. Increase cortical echogenicity of the right kidney without evidence of hydronephrosis. Cliff Mariscal MD Abdomen/Pelvis CT 08/03/16 0000 Signed Impressions: Service Date/Time: Wednesday, August 03, 2016 14:46 - CONCLUSION: 1. Generalized emaciation with patchy airspace disease in both lungs worse on the right. 2. Moderate ascites with a prominent spleen suggesting hepatic disease. 3. Moderate vascular calcifications. 4. Distended bladder in spite of Sy. Darwin Briceño MD FACR Objective Remarks GENERAL: Patient is lying in bed in NAD SKIN: Warm and dry. HEAD: Normocephalic. EYES: No scleral icterus. No injection or drainage. NECK: Supple, trachea midline. No JVD or lymphadenopathy. CARDIOVASCULAR: Regular rate and rhythm without murmurs, gallops, or rubs. RESPIRATORY: Breath sounds equal bilaterally. No accessory muscle use. GASTROINTESTINAL: Abdomen soft, non-tender, nondistended. MUSCULOSKELETAL: No cyanosis, or edema. BACK: Nontender without obvious deformity. No CVA tenderness. Neuro: Awake and alert A/P Assessment and Plan 1. Respiratory insufficiency. 2. Status post hypoglycemic episode. 3. Leukocytosis. 4. Urinary tract infection. 5. Anemia. 6. Coagulopathy. 7. Elevated liver enzymes. 8. COPD. 9. History of non-Hodgkin's lymphoma. 10. GERD 11. Chronic back pain. Plan Neuro: Monitor neuro status and avoid any sedatives. CT brain negative for acute disease. UDS:+ Opiates, Benzo, Ammonia level < 10 On Xanax 1mg Q4 PRN anxiety, Dilaudid PRN for pain. Pulm: Continue with oxygen to maintain sats > 92%. Bronchodilators . Solu-Medrol 60 mg IV q.8h. CV: Monitor HR and BP and maintain MAP > 65 mmHg. Lactic acid level: 0.9. Received 3L NS on arrival. On D5 NS at 100 ml an hour. :Monitor renal function Is and Os and electrolyte replacement per protocol. GI: On Protonix 40 mg IV daily. Monitor LFT's, GI is following. For HIDA scan today. Follow up on Hepatitis profile. US Liver: Hyperechoic liver with minimal ascites. Thickened gallbladder wall with pericholecystic fluid and minimal sludge. Increase cortical echogenicity of the right kidney without evidence of hydronephrosis. Heme: s/p transfusion 2 units of PRBCs, 2u FFP yesterday. Hgb 9.3 today from 6.5 on arrival and INR: 1.5 today from 2.4 Fibrinogen level: 333 ID: continue with abx (vancomycin, Zosyn and azithromycin). Monitor for signs of infections (fever and WBC). WBC trending down. Received cefepime and azithromycin in the ER. Strep pneumonia and Legionella urinary Ag negative. Follow up on cultures. Endo: SSI with Accu-Cheks q. 2-hour. On D5 NS at 100 ml an hour. TSH level measured at 2.92. GI prophylaxis with Protonix 40 mg daily and DVT prophylaxis with SCDs. INR 1.5 today from 2.4 on arrival Not on chemical AC prophylaxis due to anemia requiring blood transfusion in addition patient was coagulopathic on arrival. Level 3 Diane Hernandez MD August 04, 2016 08:17
[2016-08-04] MEDS ORDERED: CALCIUM GLUCONATE INJ 1 GM in SODIUM CHLORIDE 0.9% INJ 100 ML IV ONE (09:00)
--- NOTE | 2016-08-04 12:42 | RADRPT ---
EXAM DATE/TIME: 08/04/2016 09:17 [place] COMPARISON: CT ABDOMEN & PELVIS W CONTRAST, August 03, 2016, 14:46. INDICATIONS : Ascites with abdominal pain and elevated liver enzymes. DOSE: 4.1 mCi Tc99m Mebrofenin IV MEDICAL HISTORY : Chronic obstructive pulmonary disease. Gastroesophageal reflux disease. SURGICAL HISTORY : Appendectomy. Tonsillectomy. Fusion, cervical. ENCOUNTER: Initial ACUITY: 1 day PAIN SCALE: 4/10 LOCATION: Right upper quadrant TECHNIQUE: Following the intravenous administration of radiotracer, dynamic sequential images were performed wit h continuous acquisition. FINDINGS: HEPATIC KINETICS: There is prompt uptake of radiotracer in the liver. No focal defects are seen. There is normal rate of washout from the hepatic parenchyma. BILIARY CLEARANCE: Activity is first seen in the extrahepatic biliary system at 5 minutes. There is normal excretion in to the small bowel. GALLBLADDER: Activity is first seen in the gallbladder at 5 minutes. Common bile duct kinetics are normal and the re is no evidence of biliary obstruction. Gallbladder ejection fraction is less than 25%. BILIARY ENTRIC REFLUX: Small amount observed. CONCLUSION: Gallbladder ejection fraction less than 25% indicating possible chronic cholecystitis in the proper c linical setting. Chase Daniels MD on August 04, 2016 at 12:36 Board Certified Radiologist. This report was verified electronically.
[2016-08-04] MEDS: VANCOMYCIN INJ 750 MG in SODIUM CHLOR 0.9% 250 ML INJ 250 ML IV SCH ×2 (13:40→23:57)
[2016-08-04] MEDS: RESP: ALBUTEROL 2.5 MG/IPRATROPIUM 0.5 MG NEB (PRN) INH (14:11)
--- NOTE | 2016-08-04 15:50 | EKG ---
Date Performed: 08/03/2016 Time Performed: 13:25:47 PTAGE: 61 years EKG: SUPRAVENTRICULAR RHYTHM MODERATE ST DEPRESSION PROLONGED QT INTERVAL Compared to prior trac ing no significant change ABNORMAL ECG PREVIOUS TRACING : 06/15/2015 21.54 DOCTOR: Katya Lopez Interpretating Date/Time 08/04/2016 15:46:53
[2016-08-04] MEDS: COLLAGENASE OINT 30 GM TUBE TOPICAL SCH (17:15)
[2016-08-04] MEDS: AZITHROMYCIN INJ 500 MG in SODIUM CHLOR 0.9% 250 ML INJ 250 ML IV SCH (17:16)
[2016-08-05] VITALS (15 sets, daily range): BP systolic 137–180; BP diastolic 60–81; PULSE 70–97; RESP 10–24; TEMP 97.4–98.9; O2SAT 82–100
[2016-08-05] MEDS: RESP: ALBUTEROL 2.5 MG/IPRATROPIUM 0.5 MG NEB (SCH) INH ×5 (03:34→21:12)
[2016-08-05] MEDS: INSULIN NovoLIN REGULAR SUPPLEMENTAL SCALE SQ SCH ×6 (04:00→21:00)
[2016-08-05] MEDS: CHLORHEXIDINE GLUCONATE 2 % 1 PACK (2 CLOTHS) TOP SCH (04:00)
[2016-08-05] MEDS: PIPERACIL-TAZO 4.5 GM PREMIX 100 ML IV SCH ×4 (04:00→21:26)
[2016-08-05 04:16] LABS: HEMATOCRIT 25.1 % (39.0-51.0); MEAN CELL VOLUME 78.6 FL (80.0-100.0); MEAN CORPUSCULAR HEMOGLOBIN 25.8 PG (27.0-34.0); MEAN CORPUSCULAR HGB CONC 32.8 % (32.0-36.0); PLATELET COUNT 82 TH/MM3 (150-450); RED CELL DISTRIBUTION WIDTH 19.4 % (11.6-17.2); WHITE BLOOD COUNT 20.7 TH/MM3 (4.0-11.0)
[2016-08-05 04:35] LABS: HEMO FLAGS AUTO DIFF
[2016-08-05 04:45] LABS: BICARBONATE 34.6 MEQ/L (21.0-32.0); MAGNESIUM 1.5 MG/DL (1.5-2.5); TOTAL BILIRUBIN ADULT 0.6 MG/DL (0.2-1.0)
[2016-08-05 05:08] LABS: CALCIUM-PROTEIN CORRECTED 7.3 MG/DL (8.5-10.1); POTASSIUM 2.2 MEQ/L (3.5-5.1)
[2016-08-05 05:26] LABS: CKMB 8.3 NG/ML (0.5-3.6)
[2016-08-05] MEDS ORDERED: POTASSIUM CHLORIDE 20 MEQ CONTROLLED RELEASE TAB PO ONE ×2 (05:45→17:00)
[2016-08-05] MEDS ORDERED: SODIUM PHOSPHATE INJ 30 MMOL in SODIUM CHLOR 0.9% 250 ML INJ 250 ML IV ONE (05:45)
[2016-08-05] MEDS: RESP: ALBUTEROL 2.5 MG/IPRATROPIUM 0.5 MG NEB (PRN) INH (05:47)
[2016-08-05] MEDS: HYDROmorphone HCL 4 MG TAB PO PRN ×4 (05:58→20:03)
[2016-08-05] MEDS: ALPRAZolam 1 MG TAB PO PRN ×2 (05:58→20:03)
[2016-08-05] MEDS: POTASSIUM CHLOR 20 MEQ PREMIX 100 ML IV SCH ×3 (06:27→11:20)
[2016-08-05] MEDS: DEXT 5%-NACL 0.9% 1000 ML INJ 1,000 ML IV SCH (08:00)
[2016-08-05] MEDS: DOCUSATE SODIUM 100 MG/10 ML UDC PO SCH ×3 (08:32→20:03)
[2016-08-05] MEDS: PANTOPRAZOLE SODIUM 40 MG VIAL IV SCH (08:32)
[2016-08-05] MEDS: SENNOSIDES SYRUP 8.8 MG/5 ML CUP PO SCH ×2 (08:32→08:47)
[2016-08-05] MEDS: methylPREDNISolone SOD SUCC 125 MG/2 ML VIAL IV PUSH SCH ×3 (08:33→22:42)
[2016-08-05] MEDS: COLLAGENASE OINT 30 GM TUBE TOPICAL SCH (08:40)
[2016-08-05 08:46] LABS: BANDS 1 % (0-6); MYELOCYTES 1 % (0-0); NEUTROPHIL # MANUAL DIFF 7.9 TH/MM3 (1.8-7.7); POLYS (SEG NEUTROPHILS) 36 % (16-70); WBC DIFF SAMPLE 100
[2016-08-05 08:47] LABS: PLATELET ESTIMATE SMEAR LOW (NORMAL); PLATELET MORPHOLOGY NORMAL (NORMAL); SCAN/DIFF FINAL DIFF MANUAL; SMUDGE CELLS PRESENT PRESENT
[2016-08-05] MEDS ORDERED: PHARMACY ORDERED LAB ONE (10:45)
--- NOTE | 2016-08-05 11:57 | HHI.CCPN ---
Subjective Remarks/Hospital Course The patient is a 61-year-old male with past medical history of non-Hodgkin's lymphoma, gastroesophageal reflux disease, chronic back pain, COPD who presented to [facility] ED after being found down on the floor, confused and hypoglycemic with initial blood sugar of 29 according to EMS. He was given D50 and his mental status subsequently improved to a GCS score of 14. In addition the patient was found hypothermic and bradycardic with heart rate in 30s to 50s. He was administered atropine 0.5 mg IV with improvements in his heart rate up to into the 60s and 70s. On arrival to the ER he was slightly confused, however, he was able to answer questions and follows simple commands. The patient denies any headache, neck pain and chest pain. In addition he denies any nausea or vomiting or abdominal pain. The history is somewhat limited as the patient is a poor historian and most of the history was obtained from reviewing the medical records. His laboratory data significant for leukocytosis with WBC of 41.9, lymphocyte predominant. Anemia with hemoglobin of 6.5 with hematocrit 21.7, and coagulopathy with INR of 2.4. In addition he was found to have elevated liver enzymes with a total bilirubin 1.4, AST 789, ALT 267, alk phos 337. Due to altered mental status CT scan of the brain was obtained which showed no acute intracranial findings. Chest x-ray on admission showed no acute disease. His lactic acid level measured at 0.9 and the patient underwent a CT abdomen and pelvis which showed patchy airspace disease, bibasilar, worse on the right. A prominent spleen suggesting hepatic disease, distended bladder and moderate vascular calcification. In the ER he was given 2 liters of crystalloids and 2 units of PRBC has been ordered by the ER. When seen the patient's current blood pressure is 90/51 with a MAP of 68. Saturation of 100% on 2 liters oxygen. He had a temperature of 88.7 core and is currently on warming blanket. 08/04 Patient is more awake and alert lying in bed in NAD. For HID scan today per GI. Subjective 08/05: Potassium, magnesium and phosphorus replaced by overnight wire coiner. Currently complaining of back pain. Denies any abdominal pain/nausea vomiting. Hemoglobin stable. Has a significant leukocytosis - lymphocyte predominant Objective Vital Signs Date Time Temp Pulse Resp B/P Pulse Ox O2 Delivery O2 Flow Rate FiO2 08/05/16 08:13 100 Nasal Cannula 3.00 08/05/16 06:00 81 08/05/16 04:00 97.4 10 144/64 Intake and Output 08/04/16 08/04/16 08/05/16 08:00 16:00 00:00 Intake Total 1720 ml 1560 ml 2652 ml Output Total 1000 ml 2250 ml 1900 ml Balance 720 ml -690 ml 752 ml Result Diagram: 08/05/16 0311 08/05/16 0311 Other Results Microbiology Date/Time Procedure Status Source Growth 08/03/16 14:10 Legionella Antigen - Final Complete Urine Catheterized Urine PRESUMPTIVE NEGATIVE FOR LEGIONELLA P... 08/03/16 14:10 Streptococcus pneumoniae Antigen (M - Final Complete Urine Catheterized Urine PRESUMPTIVE NEGATIVE FOR STREPTOCOCCU... 08/03/16 12:40 Aerobic Blood Culture - Preliminary Resulted Blood Peripheral NO GROWTH IN 2 DAYS 08/03/16 12:40 Anaerobic Blood Culture - Preliminary Resulted Blood Peripheral NO GROWTH IN 2 DAYS Imaging Last Impressions Hepatobiliary Scan Nuclear Medicine 08/04/16 0600 Signed Impressions: Service Date/Time: Thursday, August 04, 2016 09:17 - CONCLUSION: Gallbladder ejection fraction less than 25%% indicating possible chronic cholecystitis in the proper clinical setting. Chase Daniels MD Head CT 08/03/16 1318 Signed Impressions: Service Date/Time: Wednesday, August 03, 2016 14:40 - CONCLUSION: Motion otherwise negative.. Darwin Briceño MD FACR Chest X-Ray 08/03/16 1318 Signed Impressions: Service Date/Time: Wednesday, August 03, 2016 13:41 - CONCLUSION: No acute disease. Fernando Childress MD Pelvis X-Ray 08/03/16 0000 Signed Impressions: Service Date/Time: Wednesday, August 03, 2016 13:46 - CONCLUSION: No evidence of acute fracture. Cliff Mariscal MD Liver Ultrasound 08/03/16 0000 Signed Impressions: Service Date/Time: Wednesday, August 03, 2016 16:13 - CONCLUSION: Hyperechoic liver with minimal ascites. Thickened gallbladder wall with pericholecystic fluid and minimal sludge. Increase cortical echogenicity of the right kidney without evidence of hydronephrosis. Cliff Mariscal MD Abdomen/Pelvis CT 08/03/16 0000 Signed Impressions: Service Date/Time: Wednesday, August 03, 2016 14:46 - CONCLUSION: 1. Generalized emaciation with patchy airspace disease in both lungs worse on the right. 2. Moderate ascites with a prominent spleen suggesting hepatic disease. 3. Moderate vascular calcifications. 4. Distended bladder in spite of Sy. Darwin Briceño MD FACR Objective Remarks GENERAL: 61-year-old male, cachectic resting in bed in no acute distress SKIN: Warm and dry. No rash HEAD: Normocephalic. EYES: No scleral icterus. No injection or drainage. NECK: Supple, trachea midline. No JVD or lymphadenopathy. CARDIOVASCULAR: Tachycardic RR. S1, S2 no S4. RESPIRATORY: Breath sounds equal bilaterally. No accessory muscle use. GASTROINTESTINAL: Abdomen soft, non-tender, nondistended. Hypoactive bowel sounds. MUSCULOSKELETAL: No significant peripheral edema. BACK: Nontender without obvious deformity. No CVA tenderness. Neuro: Awake and alert A/P Assessment and Plan Neuro: Chronic low back pain Chronic narcotic use Monitor neuro status and avoid any sedatives. CT brain negative for acute disease. UDS:+ Opiates, Benzo, Ammonia level < 10 On Xanax 1mg Q4 PRN anxiety, Dilaudid PRN for pain. On Elavil 25 mg daily at home. Pulm: COPD Respiratory insufficiency Continue with oxygen to maintain sats > 92%. Bronchodilators every 6 hours and as needed . Solu-Medrol 60 mg IV q.8h. CV: Monitor HR and BP and maintain MAP > 65 mmHg. Lactic acid level: 0.9. Received 3L NS on arrival. On D5 NS at 100 ml an hour. /FEN: BPH Hypokalemia Hypophosphatemia Hypo-magnesium Received 40 mEq by mouth/80 mEq IV potassium chloride. Received 30 mmol sodium phosphorus Received 2 g mag sulfate. Recheck magnesium, potassium and phosphorus this afternoon. Monitor renal function Is and Os electrolyte replacement per protocol. On Ditropan 5 3 times a day at home GI: On Protonix 40 mg IV daily. Monitor LFT's, GI is following. Follow up on Hepatitis profile negative. US Liver: Hyperechoic liver with minimal ascites. Thickened gallbladder wall with pericholecystic fluid and minimal sludge. Increase cortical echogenicity of the right kidney without evidence of hydronephrosis. HIDA scan with excretion of less than 25% possibly chronic cholecystitis, patient is asymptomatic Heme: Non-Hodgkin's lymphoma Anemia Leukocytosis Thrombocytopenia Coagulopathy s/p transfusion 2 units of PRBCs, 2u FFP 08/03. Hgb 9.3 today from 6.5 on arrival and INR: 1.5 today from 2.4 Fibrinogen level: 333 ID: UTI continue with abx (vancomycin, Zosyn and azithromycin). Monitor for signs of infections (fever and WBC). WBC trending down. Received cefepime and azithromycin in the ER. 08/03 Strep pneumonia and Legionella urinary Ag negative. Blood cultures 2 today Endo: Hypoglycemia Chronic prednisone use 30 mg daily SSI with Accu-Cheks q. 2-hour. On D5 NS at 100 ml an hour. TSH level measured at 2.92. GI prophylaxis with Protonix 40 mg daily and DVT prophylaxis with SCDs. INR 1.5 today from 2.4 on arrival Not on chemical AC prophylaxis due to anemia requiring blood transfusion in addition patient was coagulopathic on arrival. Level 2 Hugo Mendiola MD August 05, 2016 11:57
[2016-08-05] MEDS: VANCOMYCIN INJ 750 MG in SODIUM CHLOR 0.9% 250 ML INJ 250 ML IV SCH (12:09)
[2016-08-05 12:30] LABS: MAGNESIUM 1.4 MG/DL (1.5-2.5)
[2016-08-05 12:35] LABS: POTASSIUM 2.9 MEQ/L (3.5-5.1)
--- NOTE | 2016-08-05 14:08 | HHI.GIFU ---
Subjective Remarks Pt sitting up in bed in no apparent distress, eating lunch, asking to go home. He says he just wants to go back home with hospice, does not want any further interventions. (Thao Milton) Objective Vitals I&O Vital Signs Date Time Temp Pulse Resp B/P Pulse Ox O2 Delivery O2 Flow Rate FiO2 08/05/16 08:13 100 Nasal Cannula 3.00 08/05/16 08:00 70 08/05/16 06:00 81 08/05/16 04:00 72 08/05/16 04:00 97.4 72 10 144/64 08/05/16 02:00 83 08/05/16 00:00 97.8 89 21 137/60 08/05/16 00:00 77 08/04/16 22:00 85 08/04/16 20:00 97.6 69 11 141/63 08/04/16 20:00 69 08/04/16 19:48 100 Nasal Cannula 2.00 08/04/16 18:00 68 08/04/16 16:00 70 08/04/16 16:00 66 16 135/61 08/04/16 14:00 74 I/O 08/04/16 08/04/16 08/04/16 08/05/16 08/05/16 08/05/16 07:00 15:00 23:00 07:00 15:00 23:00 Intake Total 1720 ml 1560 ml 2652 ml 1080 ml Output Total 1000 ml 2250 ml 1900 ml 1700 ml Balance 720 ml -690 ml 752 ml -620 ml Intake Oral 1065 ml 1000 ml 1065 ml 400 ml IV Total 655 ml 560 ml 1587 ml 680 ml Output Urine Total 1000 ml 2250 ml 1900 ml 1700 ml # Bowel Movements 0 0 0 Laboratory Laboratory Tests Test 08/05/16 08/05/16 03:11 11:15 White Blood Count 20.7 Red Blood Count 3.20 Hemoglobin 8.2 Hematocrit 25.1 Mean Corpuscular Volume 78.6 Mean Corpuscular Hemoglobin 25.8 Mean Corpuscular Hemoglobin 32.8 Concent Red Cell Distribution Width 19.4 Platelet Count 82 Mean Platelet Volume 7.9 Neutrophils (%) (Auto) Lymphocytes (%) (Auto) Monocytes (%) (Auto) Eosinophils (%) (Auto) Basophils (%) (Auto) Neutrophils # (Auto) Lymphocytes # (Auto) Monocytes # (Auto) Eosinophils # (Auto) Basophils # (Auto) CBC Comment AUTO DIFF Differential Total Cells 100 Counted Neutrophils % (Manual) 36 Band Neutrophils % 1 Lymphocytes % 61 Monocytes % 1 Neutrophils # (Manual) 7.9 Myelocytes 1 Differential Comment FINAL DIFF MANUAL Smudge Cells PRESENT Platelet Estimate LOW Platelet Morphology Comment NORMAL Blood Smear Pathologist Review Sodium Level 140 Potassium Level 2.2 2.9 Chloride Level 97 Carbon Dioxide Level 34.6 Anion Gap 8 Blood Urea Nitrogen 27 Creatinine 0.56 Estimat Glomerular Filtration 149 Rate Random Glucose 218 Calcium Level 6.1 Protein Corrected Calcium 7.3 Phosphorus Level 1.2 2.1 Magnesium Level 1.5 1.4 Total Bilirubin 0.6 Aspartate Amino Transf 203 (AST/SGOT) Alanine Aminotransferase 182 (ALT/SGPT) Alkaline Phosphatase 273 Total Creatine Kinase 345 Creatine Kinase MB 8.3 Creatine Kinase MB % 2.4 Total Protein 4.6 Albumin 2.0 Vancomycin Level Trough 8.1 Date/Time Procedure Status Source Growth 08/03/16 14:10 Legionella Antigen - Final Complete Urine Catheterized Urine PRESUMPTIVE NEGATIVE FOR LEGIONELLA P... 08/03/16 14:10 Streptococcus pneumoniae Antigen (M - Final Complete Urine Catheterized Urine PRESUMPTIVE NEGATIVE FOR STREPTOCOCCU... 08/03/16 12:40 Aerobic Blood Culture - Preliminary Resulted Blood Peripheral NO GROWTH IN 2 DAYS 08/03/16 12:40 Anaerobic Blood Culture - Preliminary Resulted Blood Peripheral NO GROWTH IN 2 DAYS Imaging Last Impressions Hepatobiliary Scan Nuclear Medicine 08/04/16 0600 Signed Impressions: Service Date/Time: Thursday, August 04, 2016 09:17 - CONCLUSION: Gallbladder ejection fraction less than 25%% indicating possible chronic cholecystitis in the proper clinical setting. Chase Daniels MD Head CT 08/03/168 Signed Impressions: Service Date/Time: Wednesday, August 03, 2016 14:40 - CONCLUSION: Motion otherwise negative.. Darwin Briceño MD FACR Chest X-Ray 08/03/168 Signed Impressions: Service Date/Time: Wednesday, August 03, 2016 13:41 - CONCLUSION: No acute disease. Fernando Childress MD Pelvis X-Ray 08/03/16 0000 Signed Impressions: Service Date/Time: Wednesday, August 03, 2016 13:46 - CONCLUSION: No evidence of acute fracture. Cliff Mariscal MD Liver Ultrasound 08/03/16 0000 Signed Impressions: Service Date/Time: Wednesday, August 03, 2016 16:13 - CONCLUSION: Hyperechoic liver with minimal ascites. Thickened gallbladder wall with pericholecystic fluid and minimal sludge. Increase cortical echogenicity of the right kidney without evidence of hydronephrosis. Cliff Mariscal MD Abdomen/Pelvis CT 08/03/16 0000 Signed Impressions: Service Date/Time: Wednesday, August 03, 2016 14:46 - CONCLUSION: 1. Generalized emaciation with patchy airspace disease in both lungs worse on the right. 2. Moderate ascites with a prominent spleen suggesting hepatic disease. 3. Moderate vascular calcifications. 4. Distended bladder in spite of Sy. Darwin Briceño MD FACR Physical Exam HEENT: EOMI; normocephalic; atraumatic; no jaundice. CHEST: diminished. CARDIAC: RRR ABDOMEN: emaciated, nontender; bowel sounds are present in all four quadrants. EXTREMITIES: No clubbing, cyanosis, or edema. 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 (Thao Milton [facility]) Assessment and Plan Plan ASSESSMENT - elevated LFTs - trending down. Asymptomatic. Hep panel neg. pt denies ETOH. HIDA 08-04-16 ---> no evidence biliary obstruction, GB ej fraction <25%, possible chronic cholecystitis. US 08-03-16---> Hyperechoic liver with minimal ascites.Thickened gallbladder wall with pericholecystic fluid and minimal sludge. Increase cortical echogenicity of the right kidney without evidence of hydronephrosis. Abdomen/Pelvis CT 08/03/16---> 1. Generalized emaciation with patchy airspace disease in both lungs worse on the right. 2. Moderate ascites with a prominent spleen suggesting hepatic disease. 3. Moderate vascular calcifications. 4. Distended bladder in spite of Sy. - anemia - Hgb 8.2, was 6.5 on admission. Hx non hodgkins lymphoma. guiac neg. pt denies tarry stools, hematochezia, hematemesis. s/p 2 x PRBC, 2 X FFP. PLAN: - monitor HH - monitor LFTs - transfuse as needed - supportive care - GI will sign off for now as pt does not want further interventions from us This pt seen by myself and Dr Schroeder and this note is written on her behalf ( Thao Milton) Physician Comments seen, examined agree with above (iNcole Schroeder MD) Thao Milton August 05, 2016 14:08 Nicole Schroeder MD August 05, 2016 20:15
[2016-08-05] MEDS: AZITHROMYCIN INJ 500 MG in SODIUM CHLOR 0.9% 250 ML INJ 250 ML IV SCH (14:46)
[2016-08-05] MEDS ORDERED: POTASSIUM CHLOR 40 MEQ PREMIX 100 ML IV PRN ×2 (17:00)
[2016-08-05] MEDS ORDERED: POTASSIUM PHOSPHATE MONOBASIC 500 MG TAB PO PRN (17:00)
[2016-08-05] MEDS ORDERED: MAGNESIUM SULFATE INJ 2 GM in SODIUM CHLORIDE 0.9% INJ 96 ML IV PRN (17:00)
[2016-08-05] MEDS ORDERED: SODIUM PHOSPHATE INJ 30 MMOL in SODIUM CHLOR 0.9% 250 ML INJ 240 ML IV PRN (17:00)
[2016-08-05] MEDS ORDERED: MAGNESIUM OXIDE 400 MG TAB PO PRN (17:00)
[2016-08-05] MEDS ORDERED: MAGNESIUM SULFATE INJ 4 GM in SODIUM CHLORIDE 0.9% INJ 92 ML IV PRN (17:00)
[2016-08-05] MEDS ORDERED: POTASSIUM CHLOR 20 MEQ PREMIX 100 ML IV PRN (17:00)
[2016-08-05] MEDS ORDERED: POTASSIUM CHLORIDE 25 MEQ EFFERVESCENT TAB PO PRN (17:00)
[2016-08-05] MEDS ORDERED: POTASSIUM PHOSPHATE MONOBASIC 500 MG TAB PO/TUBE PRN (17:00)
[2016-08-05] MEDS: MAGNESIUM SULFATE 1 GM PREMIX 100 ML IV SCH ×2 (17:43→17:48)
[2016-08-05] MEDS ORDERED: SODIUM PHOSPHATE INJ 15 MMOL in SODIUM CHLORIDE 0.9% INJ 150 ML IV ONE (18:00)
[2016-08-05] MEDS: POTASSIUM CHLOR 10 MEQ PREMIX 100 ML IV SCH ×3 (18:18→21:26)
[2016-08-05] MEDS: MAGNESIUM OXIDE 400 MG TAB PO SCH (21:26)
[2016-08-05] MEDS: VANCOMYCIN INJ 1,250 MG in SODIUM CHLOR 0.9% 250 ML INJ 250 ML IV SCH (22:42)
[2016-08-06] VITALS: BP 161/71; PULSE 70; RESP 12; TEMP 98.7; O2SAT 99
[2016-08-06] MEDS: HYDROmorphone HCL 4 MG TAB PO PRN ×2 (00:44→07:52)
[2016-08-06] MEDS: ALPRAZolam 1 MG TAB PO PRN ×3 (00:44→11:48)
[2016-08-06 01:00] VITALS: BP 174/79; PULSE 90; RESP 36; O2SAT 98
[2016-08-06] MEDS: RESP: ALBUTEROL 2.5 MG/IPRATROPIUM 0.5 MG NEB (SCH) INH ×3 (01:17→08:57)
[2016-08-06 01:44] LABS: BICARBONATE 40.7 MEQ/L (21.0-32.0); TOTAL BILIRUBIN ADULT 0.6 MG/DL (0.2-1.0)
[2016-08-06 01:49] LABS: CALCIUM-PROTEIN CORRECTED 7.4 MG/DL (8.5-10.1)
[2016-08-06 02:00] VITALS: PULSE 80
[2016-08-06] MEDS: POTASSIUM CHLOR 20 MEQ PREMIX 100 ML IV PRN ×2 (02:03→05:12)
[2016-08-06] MEDS ORDERED: POTASSIUM CHLORIDE 20 MEQ CONTROLLED RELEASE TAB PO ONE (03:30)
[2016-08-06 04:00] VITALS: BP 170/77; PULSE 82; RESP 12; TEMP 98.4; O2SAT 98
[2016-08-06] MEDS: CHLORHEXIDINE GLUCONATE 2 % 1 PACK (2 CLOTHS) TOP SCH (04:00)
[2016-08-06] MEDS: PIPERACIL-TAZO 4.5 GM PREMIX 100 ML IV SCH ×2 (04:13→11:48)
[2016-08-06] MEDS: HYDROmorphone HCL PF 1 MG/ML VIAL IV PRN ×2 (04:13→11:49)
--- NOTE | 2016-08-06 05:08 | RADRPT ---
EXAM DATE/TIME: 08/06/2016 03:43 [place] COMPARISON: CHEST SINGLE AP, August 03, 2016, 13:41. INDICATIONS : Shortness of breath, possible pulmonary disease. MEDICAL HISTORY : Lymphoma. SURGICAL HISTORY : Fusion, cervical. ENCOUNTER: Subsequent ACUITY: 4 - 6 days PAIN SCORE: Non-responsive. LOCATION: Bilateral chest FINDINGS: A single portable frontal view of the chest shows bibasilar infiltrates which are new from the prior study. Tiny right effusion. Heart is normal in size. Lungs are hyperaerated. A degenerative spine. CONCLUSION: No bibasilar infiltrates and small right effusion. Lavell Chapa Jr., MD on August 06, 2016 at 5:06 Board Certified Radiologist. This report was verified electronically.
[2016-08-06 06:00] VITALS: PULSE 89
[2016-08-06 06:24] LABS: HEMATOCRIT 30.4 % (39.0-51.0); MEAN CELL VOLUME 81.6 FL (80.0-100.0); MEAN CORPUSCULAR HEMOGLOBIN 24.7 PG (27.0-34.0); MEAN CORPUSCULAR HGB CONC 30.2 % (32.0-36.0); PLATELET COUNT 65 TH/MM3 (150-450); RED BLOOD COUNT 3.73 MIL/MM3 (4.50-5.90); RED CELL DISTRIBUTION WIDTH 19.8 % (11.6-17.2); WHITE BLOOD COUNT 16.3 TH/MM3 (4.0-11.0)
[2016-08-06 06:29] LABS: HEMO FLAGS AUTO DIFF
[2016-08-06 06:38] LABS: CALCIUM-PROTEIN CORRECTED 7.5 MG/DL (8.5-10.1); MAGNESIUM 1.8 MG/DL (1.5-2.5); POTASSIUM 3.7 MEQ/L (3.5-5.1); TOTAL BILIRUBIN ADULT 0.6 MG/DL (0.2-1.0)
[2016-08-06] MEDS: INSULIN NovoLIN REGULAR SUPPLEMENTAL SCALE SQ SCH ×2 (06:41→12:00)
[2016-08-06] MEDS: MAGNESIUM OXIDE 400 MG TAB PO SCH (07:52)
[2016-08-06] MEDS: methylPREDNISolone SOD SUCC 125 MG/2 ML VIAL IV PUSH SCH (07:53)
[2016-08-06] MEDS: PANTOPRAZOLE SODIUM 40 MG VIAL IV SCH (07:53)
[2016-08-06] MEDS: SENNOSIDES SYRUP 8.8 MG/5 ML CUP PO SCH (07:53)
[2016-08-06] MEDS: DOCUSATE SODIUM 100 MG/10 ML UDC PO SCH (07:54)
[2016-08-06 08:58] VITALS: O2SAT 100
[2016-08-06] MEDS ORDERED: AZITHROMYCIN 250 MG TAB PO SCH (09:00)
--- NOTE | 2016-08-06 09:52 | HHI.DS ---
Discharge Summary Admission Date August 03, 2016 at 15:25 Discharge Date: August 06, 2016 Admitting Diagnosis sepsis, pneumonia, elevated transaminases, hypothermia, hypoglycemia (1) Bilateral pneumonia ICD Code: J18.9 Diagnosis: Principal (2) Sepsis ICD Code: A41.9 Diagnosis: Principal (3) Hypothermia ICD Code: T68.XXXA Diagnosis: Principal (4) Hypoglycemia ICD Code: E16.2 Diagnosis: Principal (5) Anemia ICD Code: D64.9 Diagnosis: Principal (6) MEGAN (acute kidney injury) ICD Code: N17.9 Diagnosis: Principal (7) Elevated troponin ICD Code: R79.89 Diagnosis: Principal (8) UTI (urinary tract infection) ICD Code: N39.0 Diagnosis: Principal Procedures HIDA scan - less than 20%. Possible chronic cholecystitis Brief History 61-year-old male with past medical history of non-Hodgkin's lymphoma, gastroesophageal reflux disease, chronic back pain, COPD who presented to [facility] ED after being found down on the floor, confused and hypoglycemic with initial blood sugar of 29 according to EMS. He was given D50 and his mental status subsequently improved to a GCS score of 14. In addition the patient was found hypothermic and bradycardic with heart rate in 30s to 50s. He was administered atropine 0.5 mg IV with improvements in his heart rate up to into the 60s and 70s. On arrival to the ER he was slightly confused , however, he was able to answer questions and follows simple commands. The patient denies any headache, neck pain and chest pain. In addition he denies any nausea or vomiting or abdominal pain. The history is somewhat limited as the patient is a poor historian and most of the history was obtained from reviewing the medical records. His laboratory data significant for leukocytosis with WBC of 41.9, lymphocyte predominant. Anemia with hemoglobin of 6.5 with hematocrit 21.7, and coagulopathy with INR of 2.4. In addition he was found to have elevated liver enzymes with a total bilirubin 1.4, AST 789, ALT 267, alk phos 337. Due to altered mental status CT scan of the brain was obtained which showed no acute intracranial findings. Chest x-ray on admission showed no acute disease. His lactic acid level measured at 0.9 and the patient underwent a CT abdomen and pelvis which showed patchy airspace disease, bibasilar, worse on the right. A prominent spleen suggesting hepatic disease, distended bladder and moderate vascular calcification. In the ER he was given 2 liters of crystalloids and 2 units of PRBC has been ordered by the ER. When seen the patient's current blood pressure is 90/51 with a MAP of 68. Saturation of 100% on 2 liters oxygen. He had a temperature of 88.7 core and is currently on warming blanket. CBC/BMP: 08/06/16 0602 08/06/16 0602 Significant Findings Laboratory Tests Test 08/03/16 08/03/16 08/03/16 08/04/16 12:20 14:10 17:04 00:27 White Blood Count 41.9 TH/MM3 (4.0-11.0) Red Blood Count 2.79 MIL/MM3 (4.50-5.90) Hemoglobin 6.5 GM/DL (13.0-17.0) Hematocrit 21.7 % (39.0-51.0) Mean Corpuscular Volume 77.8 FL (80.0-100.0) Mean Corpuscular Hemoglobin 23.1 PG (27.0-34.0) Mean Corpuscular Hemoglobin 29.7 % Concent (32.0-36.0) Red Cell Distribution Width 20.1 % (11.6-17.2) Neutrophils % (Manual) 13 % (16-70) Lymphocytes % 84 % (9-44) Prothrombin Time 28.1 SEC (9.8-11.6) Activated Partial 35.8 SEC Thromboplast Time (24.3-30.1) Carbon Dioxide Level 33.2 MEQ/L (21.0-32.0) Blood Urea Nitrogen 52 MG/DL (7-18) Creatinine 0.44 MG/DL (0.60-1.30) Random Glucose 170 MG/DL (74-106) Calcium Level 6.8 MG/DL (8.5-10.1) Protein Corrected Calcium 8.2 MG/DL (8.5-10.1) Total Bilirubin 1.4 MG/DL (0.2-1.0) Aspartate Amino Transf 789 U/L (15-37) (AST/SGOT) Alanine Aminotransferase 267 U/L (12-78) (ALT/SGPT) Alkaline Phosphatase 337 U/L (45-117) Total Creatine Kinase 741 U/L 685 U/L 845 U/L (39-308) (39-308) (39-308) Creatine Kinase MB 44.9 NG/ML 41.4 NG/ML 37.1 NG/ML (0.5-3.6) (0.5-3.6) (0.5-3.6) Creatine Kinase MB % 6.1 % (0.0-4.0) 6.0 % (0.0-4.0) 4.4 % (0.0-4.0) Troponin I LESS THAN 0.02 LESS THAN 0.02 LESS THAN 0.02 NG/ML NG/ML NG/ML (0.02-0.05) (0.02-0.05) (0.02-0.05) Total Protein 4.5 GM/DL (6.4-8.2) Albumin 2.1 GM/DL (3.4-5.0) Urine Glucose (UA) 70 mg/dL (NEG) Urine Occult Blood SMALL (NEG) Urine Nitrite POS (NEG) Urine Leukocyte Esterase MOD (NEG) Urine RBC 17 /hpf (0-3) Urine Mucus FEW /lpf (OCC) Urine Opiates Screen POS (NEG) Urine Benzodiazepines Screen POS (NEG) Ammonia LESS THAN 10 MCMOL/L (11-32) Test 08/04/16 08/05/16 08/05/16 08/06/16 03:37 03:11 11:15 01:13 White Blood Count 26.4 TH/MM3 20.7 TH/MM3 (4.0-11.0) (4.0-11.0) Red Blood Count 3.72 MIL/MM3 3.20 MIL/MM3 (4.50-5.90) (4.50-5.90) Hemoglobin 9.3 GM/DL 8.2 GM/DL (13.0-17.0) (13.0-17.0) Hematocrit 30.4 % 25.1 % (39.0-51.0) (39.0-51.0) Mean Corpuscular Hemoglobin 25.1 PG 25.8 PG (27.0-34.0) (27.0-34.0) Mean Corpuscular Hemoglobin 30.7 % Concent (32.0-36.0) Red Cell Distribution Width 19.0 % 19.4 % (11.6-17.2) (11.6-17.2) Platelet Count 115 TH/MM3 82 TH/MM3 (150-450) (150-450) Lymphocytes % 74 % (9-44) 61 % (9-44) Platelet Estimate LOW (NORMAL) LOW (NORMAL) Prothrombin Time 17.0 SEC (9.8-11.6) Blood Urea Nitrogen 41 MG/DL (7-18) 27 MG/DL (7-18) Random Glucose 134 MG/DL 218 MG/DL 118 MG/DL (74-106) (74-106) (74-106) Calcium Level 6.4 MG/DL 6.1 MG/DL 6.3 MG/DL (8.5-10.1) (8.5-10.1) (8.5-10.1) Protein Corrected Calcium 7.3 MG/DL 7.3 MG/DL 7.4 MG/DL (8.5-10.1) (8.5-10.1) (8.5-10.1) Aspartate Amino Transf 505 U/L (15-37) 203 U/L (15-37) 117 U/L (15-37) (AST/SGOT) Alanine Aminotransferase 245 U/L (12-78) 182 U/L (12-78) 178 U/L (12-78) (ALT/SGPT) Alkaline Phosphatase 311 U/L 273 U/L 255 U/L (45-117) (45-117) (45-117) Total Protein 5.2 GM/DL 4.6 GM/DL 4.9 GM/DL (6.4-8.2) (6.4-8.2) (6.4-8.2) Albumin 2.4 GM/DL 2.0 GM/DL 2.1 GM/DL (3.4-5.0) (3.4-5.0) (3.4-5.0) Mean Corpuscular Volume 78.6 FL (80.0-100.0) Neutrophils # (Manual) 7.9 TH/MM3 (1.8-7.7) Myelocytes 1 % (0-0) Potassium Level 2.2 MEQ/L 2.9 MEQ/L 3.0 MEQ/L (3.5-5.1) (3.5-5.1) (3.5-5.1) Chloride Level 97 MEQ/L 92 MEQ/L (98-107) (98-107) Carbon Dioxide Level 34.6 MEQ/L 40.7 MEQ/L (21.0-32.0) (21.0-32.0) Creatinine 0.56 MG/DL 0.36 MG/DL (0.60-1.30) (0.60-1.30) Phosphorus Level 1.2 MG/DL 2.1 MG/DL 1.2 MG/DL (2.5-4.9) (2.5-4.9) (2.5-4.9) Total Creatine Kinase 345 U/L (39-308) Creatine Kinase MB 8.3 NG/ML (0.5-3.6) Magnesium Level 1.4 MG/DL (1.5-2.5) Test 08/06/16 06:02 White Blood Count 16.3 TH/MM3 (4.0-11.0) Red Blood Count 3.73 MIL/MM3 (4.50-5.90) Hemoglobin 9.2 GM/DL (13.0-17.0) Hematocrit 30.4 % (39.0-51.0) Mean Corpuscular Hemoglobin 24.7 PG (27.0-34.0) Mean Corpuscular Hemoglobin 30.2 % Concent (32.0-36.0) Red Cell Distribution Width 19.8 % (11.6-17.2) Platelet Count 65 TH/MM3 (150-450) Chloride Level 92 MEQ/L (98-107) Carbon Dioxide Level 40.0 MEQ/L (21.0-32.0) Creatinine 0.37 MG/DL (0.60-1.30) Random Glucose 158 MG/DL (74-106) Calcium Level 6.4 MG/DL (8.5-10.1) Protein Corrected Calcium 7.5 MG/DL (8.5-10.1) Phosphorus Level 1.7 MG/DL (2.5-4.9) Aspartate Amino Transf 100 U/L (15-37) (AST/SGOT) Alanine Aminotransferase 166 U/L (12-78) (ALT/SGPT) Alkaline Phosphatase 248 U/L (45-117) Total Protein 4.9 GM/DL (6.4-8.2) Albumin 2.1 GM/DL (3.4-5.0) Imaging Last Impressions Chest X-Ray 08/06/16 0600 Signed Impressions: Service Date/Time: July 03:43 - CONCLUSION: No bibasilar infiltrates and small right effusion. Lavell Chapa Jr., MD Hepatobiliary Scan Nuclear Medicine 08/04/16 0600 Signed Impressions: Service Date/Time: Thursday, August 04, 2016 09:17 - CONCLUSION: Gallbladder ejection fraction less than 25%% indicating possible chronic cholecystitis in the proper clinical setting. Chase Daniels MD Head CT 08/03/16 1318 Signed Impressions: Service Date/Time: Wednesday, August 03, 2016 14:40 - CONCLUSION: Motion otherwise negative.. Darwin Briceño MD FACR Pelvis X-Ray 08/03/16 0000 Signed Impressions: Service Date/Time: Wednesday, August 03, 2016 13:46 - CONCLUSION: No evidence of acute fracture. Cliff Mariscal MD Liver Ultrasound 08/03/16 0000 Signed Impressions: Service Date/Time: Wednesday, August 03, 2016 16:13 - CONCLUSION: Hyperechoic liver with minimal ascites. Thickened gallbladder wall with pericholecystic fluid and minimal sludge. Increase cortical echogenicity of the right kidney without evidence of hydronephrosis. Cliff Mariscal MD Abdomen/Pelvis CT 08/03/16 0000 Signed Impressions: Service Date/Time: Wednesday, August 03, 2016 14:46 - CONCLUSION: 1. Generalized emaciation with patchy airspace disease in both lungs worse on the right. 2. Moderate ascites with a prominent spleen suggesting hepatic disease. 3. Moderate vascular calcifications. 4. Distended bladder in spite of Sy. Darwin Briceño MD FACR PE at Discharge GENERAL: 61-year-old male, cachectic in mild distress secondary to pain SKIN: Warm and dry. HEAD: Atraumatic. Normocephalic. EYES: Pupils equal and round. No scleral icterus. No injection or drainage. ENT: No nasal bleeding or discharge. Mucous membranes pink and moist. NECK: Trachea midline. No JVD. CARDIOVASCULAR: Regular rate and rhythm. S1, S2. No S4. Without murmur RESPIRATORY: No accessory muscle use. Clear to auscultation. Breath sounds equal bilaterally. GASTROINTESTINAL: Abdomen soft, non-tender, nondistended. Hepatic and splenic margins not palpable. MUSCULOSKELETAL: Extremities without clubbing, cyanosis, or edema. No obvious deformities. NEUROLOGICAL: Awake and alert. No obvious cranial nerve deficits. Motor grossly within normal limits. Five out of 5 muscle strength in the arms and legs. Normal speech. PSYCHIATRIC: Appropriate mood and affect; insight and judgment normal. Transfer Summary Neuro: Chronic low back pain Chronic narcotic use Monitor neuro status and avoid any sedatives. CT brain negative for acute disease. UDS:+ Opiates, Benzo, Ammonia level < 10 On Xanax 1mg Q4 PRN anxiety, Dilaudid PRN for pain. On Elavil 25 mg daily at home. Pulm: COPD Respiratory insufficiency Continue with oxygen to maintain sats > 92%. Bronchodilators every 6 hours and as needed . Solu-Medrol 60 mg IV q.8h. CV: Monitor HR and BP and maintain MAP > 65 mmHg. Lactic acid level: 0.9. Received 3L NS on arrival. On D5 NS at 100 ml an hour. /FEN: BPH Hypokalemia Hypophosphatemia Hypo-magnesium Received 40 mEq by mouth/80 mEq IV potassium chloride. Received 30 mmol sodium phosphorus Received 2 g mag sulfate. Recheck magnesium, potassium and phosphorus this afternoon. Monitor renal function Is and Os electrolyte replacement per protocol. On Ditropan 5 3 times a day at home GI: On Protonix 40 mg IV daily. Monitor LFT's, GI is following. Follow up on Hepatitis profile negative. US Liver: Hyperechoic liver with minimal ascites. Thickened gallbladder wall with pericholecystic fluid and minimal sludge. Increase cortical echogenicity of the right kidney without evidence of hydronephrosis. HIDA scan with excretion of less than 25% possibly chronic cholecystitis, patient is asymptomatic Heme: Non-Hodgkin's lymphoma Anemia Leukocytosis Thrombocytopenia Coagulopathy s/p transfusion 2 units of PRBCs, 2u FFP 08/03. Hgb 9.3 today from 6.5 on arrival and INR: 1.5 today from 2.4 Fibrinogen level: 333 ID: UTI continue with abx (vancomycin, Zosyn and azithromycin). Monitor for signs of infections (fever and WBC). WBC trending down. Received cefepime and azithromycin in the ER. 08/03 Strep pneumonia and Legionella urinary Ag negative. Blood cultures 2 today Endo: Hypoglycemia Chronic prednisone use 30 mg daily SSI with Accu-Cheks q. 2-hour. On D5 NS at 100 ml an hour. TSH level measured at 2.92. GI prophylaxis with Protonix 40 mg daily and DVT prophylaxis with SCDs. INR 1.5 today from 2.4 on arrival Not on chemical AC prophylaxis due to anemia requiring blood transfusion in addition patient was coagulopathic on arrival. Hospital Course The patient is a 61-year-old male with past medical history of non-Hodgkin's lymphoma, gastroesophageal reflux disease, chronic back pain, COPD who presented to [facility] ED after being found down on the floor, confused and hypoglycemic with initial blood sugar of 29 according to EMS. He was given D50 and his mental status subsequently improved to a GCS score of 14. In addition the patient was found hypothermic and bradycardic with heart rate in 30s to 50s. He was administered atropine 0.5 mg IV with improvements in his heart rate up to into the 60s and 70s. On arrival to the ER he was slightly confused, however, he was able to answer questions and follows simple commands. The patient denies any headache, neck pain and chest pain. In addition he denies any nausea or vomiting or abdominal pain. The history is somewhat limited as the patient is a poor historian and most of the history was obtained from reviewing the medical records. His laboratory data significant for leukocytosis with WBC of 41.9, lymphocyte predominant. Anemia with hemoglobin of 6.5 with hematocrit 21.7, and coagulopathy with INR of 2.4. In addition he was found to have elevated liver enzymes with a total bilirubin 1.4, AST 789, ALT 267, alk phos 337. Due to altered mental status CT scan of the brain was obtained which showed no acute intracranial findings. Chest x-ray on admission showed no acute disease. His lactic acid level measured at 0.9 and the patient underwent a CT abdomen and pelvis which showed patchy airspace disease, bibasilar, worse on the right. A prominent spleen suggesting hepatic disease, distended bladder and moderate vascular calcification. In the ER he was given 2 liters of crystalloids and 2 units of PRBC has been ordered by the ER. When seen the patient's current blood pressure is 90/51 with a MAP of 68. Saturation of 100% on 2 liters oxygen. He had a temperature of 88.7 core and is currently on warming blanket. 08/04 Patient is more awake and alert lying in bed in NAD. For HID scan today per GI. 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 Currently complaining of back pain. Denies any abdominal pain/nausea vomiting. Hemoglobin stable. Has a significant leukocytosis - lymphocyte predominant 08/06 - patient states he wants to go home under [facility] hospice. Requesting additional pain medicine. Complaining of back pain. Pt Condition on Discharge: Stable Discharge Disposition: Hospice/ Home Discharge Instructions DIET: Follow Instructions for: Liver Disease Diet Activities you can perform: Non Weight Bearing Hugo Mendiola MD August 06, 2016 09:52
[2016-08-06 09:54] LABS: MYELOCYTES 1 % (0-0); POLYS (SEG NEUTROPHILS) 48 % (16-70); WBC DIFF SAMPLE 100
[2016-08-06 09:55] LABS: OVALOCYTES 1+ (NORMAL); PLATELET ESTIMATE SMEAR LOW (NORMAL); PLATELET MORPHOLOGY NORMAL (NORMAL); SCAN/DIFF FINAL DIFF MANUAL; SMUDGE CELLS PRESENT PRESENT
[2016-08-06] MEDS: VANCOMYCIN INJ 1,250 MG in SODIUM CHLOR 0.9% 250 ML INJ 250 ML IV SCH (11:48)
[2016-08-06] MEDS: COLLAGENASE OINT 30 GM TUBE TOPICAL SCH (11:50)
[2016-08-07] MEDS ORDERED: PHARMACY ORDERED LAB ONE (10:45)
== END 2016-08-06 13:40 | disposition hospice, home (50) | DRG 871 ==
LOC: NEPE 13:13 → NEDA 15:25 → HIMW 20:15
PROVIDERS: ADMIT Internal Medicine Critical Care Medicine; ATTEND Internal Medicine Critical Care Medicine
PROC: 30253K1 (ICD-10-PCS; principal; 2016-08-03)
PROC: 30253N1 (ICD-10-PCS; 2016-08-03)
DX: A41.9 Sepsis, unspecified organism (principal); J18.9 Pneumonia, unspecified organism; D68.9 Coagulation defect, unspecified; N17.9 Acute kidney failure, unspecified; C85.90 Non-Hodgkin lymphoma, unspecified, unspecified site; T68.XXXA Hypothermia, initial encounter; J44.0 Chronic obstructive pulmonary disease with (acute) lower respiratory infection; R18.8 Other ascites; N39.0 Urinary tract infection, site not specified; D69.6 Thrombocytopenia, unspecified; E83.42 Hypomagnesemia; E83.39 Other disorders of phosphorus metabolism; K21.9 Gastro-esophageal reflux disease without esophagitis; G89.29 Other chronic pain; J44.9 Chronic obstructive pulmonary disease, unspecified; D64.9 Anemia, unspecified; E16.2 Hypoglycemia, unspecified; E87.6 Hypokalemia; N40.0 Benign prostatic hyperplasia without lower urinary tract symptoms; Z79.52 Long term (current) use of systemic steroids; Z79.891 Long term (current) use of opiate analgesic; Z87.11 Personal history of peptic ulcer disease; F17.200 Nicotine dependence, unspecified, uncomplicated; Z91.19 Patient's noncompliance with other medical treatment and regimen; Z98.1 Arthrodesis status; Z99.81 Dependence on supplemental oxygen
CPT/HCPCS: 36430; 70450; 71010; 72170; 74177; 76705; 78226; 80053; 80074; 80202; 80307; 81001; 82140; 82550; 82552; 83605; 83735; 84100; 84132; 84443; 84484; 85007; 85027; 85060; 85384; 85610; 85730; 86850; 86900; 86901; 86920; 86927; 87040; 87449; 87641; 93005; 94640; 94664; 96361; 96365; 96375; A9537; C9113; J0456; J0610; J0692; J1170; J2543; J2930; J3370; J3475; J3480; J7030; J7042; J7050; P9016; P9017; Q9967